=== PATIENT | male | born 1960 | race African-American/Black ===

== ENCOUNTER 2017-01-30 16:40 | Emergency (ER) | payer BC ==
--- NOTE | ~2017-01-30 | CR173 ---
[facility] A Service of [facility] RADIOLOGY TEXT RESULTS PATIENT: JOSE M ADAN LOCATION: [facility] : 62 UNIT #: [id number] AGE: [address]: Johanne Pastor SEX: M ORDER DR: [id number] [facility] [address] [place], [place] [address] [id number] MR#: [id number] Acc #: [id number] NAME: JOSE M ADAN : 1960 SEX: M STUDY DATE/TIME: 01/30/2017 16:20 UNIT: [facility] ROOM: STUDY DESCRIPTION: CR Knee 3 Views Rt Attending Physician: Johanne Pastor P.A.-C. Ordering Physician: Johanne Pastor P.A.-C. Primary Care Physician: Laurel Bowling M.D. MEDICAL IMAGING REPORT This report is preliminary unless electronic signature is present EXAM Right knee, 3 views. COMPARISON None. INDICATIONS 56-year-old male with right knee pain and swelling after stepping in a hole and twisting the right knee 2 days ago. FINDINGS There is a lateral compartment joint space narrowing. There are osteophytes of the medial and lateral femoral condyles and at both poles of patella. There is a small suprapatellar effusion. There is a moderate sized enthesophyte at the superior pole of the patella. Bones are anatomically aligned. No evidence of acute fracture. There is questionable joint body in the medial compartment only seen on AP view measuring up to 8 mm. This appears chronic in nature. IMPRESSION 1. Small suprapatellar effusion. No evidence of acute fracture or dislocation. 2. 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 3. Questionable chronic joint body of the medial compartment measuring up to 8 mm. Dictated by... Lb Rivas M.D. THIS IS AN ELECTRONICALLY VERIFIED REPORT Lb Rivas M.D. at 02/02/2017 3:18 PM [facility] A Service of [facility] RADIOLOGY TEXT RESULTS PATIENT: JOSE M ADAN LOCATION: [facility] : 62 UNIT #: [id number] AGE: [address]: Johanne Pastor SEX: M ORDER DR: [place] TD: 01/30/2017 17:58 JOB #: [id number] MEDICAL IMAGING REPORT Page 1 of 1 COPY
[~2017-01-30 16:40] MED LIST: FLEXERIL10 MG PO; KEFLEX500 M1 PO; LORTAB 10-5001 EACH PO; NAPROXEN PO; NOVOLOG100 U/M2 SQ; ORAPRED ODT10 MG PO; TYLENOL #3 PO
== END 2017-01-30 17:44 | disposition home or self-care (01) ==
LOC: CFTX 16:40
DX: S83.411A Sprain of medial collateral ligament of right knee, initial encounter (principal); E11.9 Type 2 diabetes mellitus without complications; Z86.73 Personal history of transient ischemic attack (TIA), and cerebral infarction without residual deficits; W19.XXXA Unspecified fall, initial encounter; Y92.009 Unspecified place in unspecified non-institutional (private) residence as the place of occurrence of the external cause
CPT/HCPCS: 29505; 73562; 99283

== ENCOUNTER 2017-05-03 20:09 | Emergency (ER) | payer BC ==
[~2017-05-03] VITALS: Ht 185.4 cm; Wt 108.9 kg
--- NOTE | ~2017-05-03 | CR126 ---
[facility] A Service of [facility] RADIOLOGY TEXT RESULTS PATIENT: JOSE M ADAN LOCATION: [facility] : 62 UNIT #: [id number] AGE: [address]: EDMUND GEORGE APRN SEX: M ORDER DR: [id number] [address] [place], [place] [address] [id number] MR#: [id number] Acc #: [id number] NAME: JOSE M ADAN : 1960 SEX: M STUDY DATE/TIME: 05/03/2017 21:46 UNIT: [facility] ROOM: STUDY DESCRIPTION: CR Foot Complete Min 3 View Lt Attending Physician: Edmund George Aprn Ordering Physician: Edmund George Aprn Primary Care Physician: Laurel Bowling M.D. MEDICAL IMAGING REPORT This report is preliminary unless electronic signature is present EXAM 3 views of the left foot. DATE: 05/03/2070 HISTORY 56-year-old male with dorsal foot and fourth metatarsal pain today. No known injury. COMPARISON None. FINDINGS No acute fracture or joint dislocation is seen. There is mild enthesophyte formation of the posterior calcaneus at the Achilles tendon insertion. Fourth metatarsal appears unremarkable. Normal configuration plantar arch. No retained radiopaque foreign body is seen. IMPRESSION No acute left foot findings. No plain film explanation for the patient's pain. Dictated by... Cherelle Castro M.D. THIS IS AN ELECTRONICALLY VERIFIED REPORT Cherelle Castro M.D. at 05/04/2017 9:52 PM [facility]/elif TD: 05/04/2017 10:15 JOB #: [id number] MEDICAL IMAGING REPORT [facility] A Service [facility] RADIOLOGY TEXT RESULTS PATIENT: JOSE M ADAN LOCATION: [facility] : 62 UNIT #: [id number] AGE: [address]: EDMUND GEORGE APRN SEX: M ORDER DR: Page 1 of 1 COPY
== END 2017-05-03 23:20 | disposition home or self-care (01) ==
LOC: CFTX 20:09 → CED 20:09 → CFTX 21:35
DX: S93.602A Unspecified sprain of left foot, initial encounter (principal); E11.9 Type 2 diabetes mellitus without complications; I10 Essential (primary) hypertension; X58.XXXA Exposure to other specified factors, initial encounter; Y92.69 Other specified industrial and construction area as the place of occurrence of the external cause; Y99.0 Civilian activity done for income or pay
CPT/HCPCS: 73630; 99283